=== PATIENT | female | born 1970 | race American Indian/Alaskan Native ===

== ENCOUNTER 2017-10-28 18:00 | Outpatient (CLI) | payer OTHER | END 2017-10-28 18:01 | disposition home or self-care (01) | LOC: LABHHL 18:00 | PROVIDERS: ATTEND Surgery | DX: L98.9 Disorder of the skin and subcutaneous tissue, unspecified (principal) | CPT/HCPCS: 88305; 88342 ==

== ENCOUNTER 2017-11-14 07:12 | Day surgery (SDC) | payer OTHER ==
[~2017-11-14 07:12] MED LIST: MARCAINE 0.25% INFILTRATI ONE; NACL 0.9% IR ONE; XYLOCAINE 1% 20 mL INFILTRATI ONE
[2017-11-14] MEDS ORDERED: NACL BACTERIOSTATIC INFILTRATI ONE (08:19)
[2017-11-14] MEDS ORDERED: XYLOCAINE 1% 20 mL ONE (08:42)
[2017-11-14] MEDS ORDERED: MARCAINE 0.25% INFILTRATI ONE ×2 (08:43→09:00)
[2017-11-14] MEDS ORDERED: VERSED IV NR (08:51)
[2017-11-14] MEDS ORDERED: DILAUDID ONE ×2 (08:52→08:55)
[2017-11-14] MEDS ORDERED: DIPRIVAN 10 MG/ML IV ONE ×4 (08:53→10:03)
[2017-11-14] MEDS ORDERED: XYLOCAINE MPF 2% ONE (08:55)
--- NOTE | 2017-11-14 08:59 | Anesthesia Consultation ---
Anesthesia Consult and Med Hx Date of service: 11/14/17 - Airway Anesthetic Teeth Evaluation: Good ROM Head & Neck: Adequate Mental/Hyoid Distance: Adequate Mallampati Class: Class II Intubation Access Assessment: Good - Pulmonary Exam CTA: Yes - Cardiac Exam Cardiac Exam: No Murmur - Pre-Operative Health Status ASA Pre-Surgery Classification: ASA2 - Pulmonary Hx Smoking: Yes (SINCE 2006, QUIT 10/2017) - Central Nervous System Hx Psychiatric Problems: No - Other Systems Hx Alcohol Use: No Hx Substance Use: No Hx Cancer: Yes
[2017-11-14] MEDS ORDERED: ANCEF/STERILE WATER 2 GM/20 ML IV NR (09:00)
[2017-11-14] MEDS ORDERED: NACL 0.9% 1000 ML 1,000 ML IV SCH (09:00)
[2017-11-14] MEDS ORDERED: XYLOCAINE 1% 20 mL INFILTRATI ONE (09:00)
[2017-11-14] MEDS ORDERED: PEPCID IV NR (09:00)
[2017-11-14] MEDS ORDERED: NACL 0.9% IR ONE (09:00)
[2017-11-14] MEDS ORDERED: HEPARIN IV ONE (09:00)
[2017-11-14] MEDS ORDERED: HEPARIN IR ONE (09:00)
--- NOTE | 2017-11-14 09:00 | Anesthesia Day of Surgery ---
Anesthesia Day of Surgery - Day of Surgery Patient Examined: Yes Patient H&P Reviewed: Yes Patient is NPO: Yes
[2017-11-14] MEDS ORDERED: HEPARIN 10,000 UNITS/10 ML ONE (09:29)
[2017-11-14] MEDS ORDERED: NACL 0.9% 100 ML ONE (09:42)
--- NOTE | 2017-11-14 10:53 | Short Stay Summary ---
Short Stay Documentation Date of service: 11/14/17 Narrative H&P: 47 yo F with diagnosis of right breast cancer, managed by Dr. Fields. Patient presents for port placement for initiation of chemotherapy next week. She has no complaints. All risks of port placment discussed and all questions answered. The consent was signed. - History H&P: obtained from office - Allergies and Medications Current Medications: Allergies No Known Allergies Allergy (Verified 11/10/17 14:48) Home Medications Medication Instructions Recorded Confirmed Last Taken Type HYDROcodone/APAP 7.5-325 [[place] 1 tab PO Q6H 11/10/17 11/14/17 11/13/17 History 7.5-325 mg TAB] Active Medications Cefazolin Sodium (Ancef/Sterile Water 2 Gm/20 Ml) 2 gm IV PREOP NR Stop: 11/14/17 11:00 Famotidine (Pepcid) 20 mg IV PREOP NR Stop: 11/14/17 11:00 Last Admin: 11/14/17 08:58 Dose: 20 mg Sodium Chloride (Nacl 0.9% 1000 Ml) 1,000 mls @ 100 mls/hr IV DIRECT PRITESH Last Admin: 11/14/17 08:57 Dose: 100 mls/hr Midazolam HCl (Versed) 2 mg IV ONCE NR Stop: 11/14/17 11:00 - Brief post op/procedure progress note Date of procedure: 11/14/17 Pre-op diagnosis: right breast cancer Post-op diagnosis: same Procedure: Left IJ Port a cath placement Anesthesia: MAC, local Findings: good placement of port on post op CXR, no PTX Surgeon: ELVIS ZELAYA Estimated blood loss: minimal Pathology: none Condition: stable - Hospital course Hospital course: Patient was recovered in the recovery room. She was discharged to home once criteria was met. - Disposition Condition at discharge: Good Disposition: DC-01 TO HOME OR SELFCARE - Discharge Diagnoses (1) Breast cancer, right Status: Acute Short Stay Discharge Plan Activity: no restrictions Diet: regular Wound: open to air, other (may shower tomorrow, no baths/hottubs/pools until incisions are healed. Pat dry, do not scrub.) Additional Instructions: call surgeons office if you have fevers>100.4, drainage or redness around incision. Follow up with: JOHNNY ELIZABETH MD [Primary Care Provider] - 7 Days JUAN CARLOS FIELDS MD [Staff Physician] - 7 Days ELVIS ZELAYA DO [Staff Physician] - 14 Days (Follow up with Dr. Zelaya if you will not be seeing Dr. Fields in the next two weeks)
--- NOTE | 2017-11-14 11:06 | Operative Report ---
Operative Report Operative Report: Date of operation: 11/14/17 Preoperative diagnosis: Right breast cancer Postoperative diagnosis: Same as above Procedure performed: Placement of left internal jugular Port-A-Cath Surgeon:Lizett valadez DO Anesthesia: Mac, local Findings: Postoperative chest x-ray showed good placement of Port-A-Cath, no pneumothorax EBL: 10 mL Complications: None Disposition: Stable to PACU HPI and Indication: 47-year-old female recently diagnosed right-sided breast cancer. The patient is seen by Dr. Fields (breast surgeon) and was referred to a oncologist. She is a candidate for chemotherapy and therefore presents for port placement. All labs reviewed. I discussed all of the risks associated with port placement with the patient, including but not limited to, bleeding, infection, malpositioning of the port, pneumothorax, hemothorax, injury to other structures. All questions were answered and consent was signed. Procedure in detail: Patient was identified in the preoperative area and taken back to the operating room and placed on the operating room table in supine position. After anesthesia was induced the arms were tucked and a bump was placed under her shoulder. The upper chest and neck was prepped and draped in usual sterile fashion and timeout was performed. The patient was placed in Trendelenburg position. The skin at the intended puncture site was anesthetized with a mixture of 0.25% Marcaine and 1% lidocaine. Using the patient's clavicle as a landmark and ultrasound guidance, I attempted to access the left subclavian vein. Secondary to the patient's respiratory variation, the subclavian vein was seen to collapse with every breath. Therefore after 2 unsuccessful attempts at access, I decided to access the internal jugular vein. Using ultrasound guidance the internal jugular vein was identified and seen to be collapsible. The skin was anesthetized and the internal jugular vein was accessed on the first stick. There was return of dark, nonpulsatile blood. The wire was then threaded without difficulty using fluoroscopic guidance. The needle was removed and the wire fixed to the drapes using a hemostat. Local anesthetic was then infiltrated in the skin at the port insertion site. Using a 15 blade a incision was made in the skin below the clavicle and dissection was carried down through skin and subcutaneous tissue using Bovie electrocautery with hemostasis achieved along the way. The pocket was then created using electrocautery as well as blunt dissection. The catheter was then tunneled from the pocket to the wire. The breakaway sheath-dilator complex was then placed over the wire under fluoroscopy. The wire and dilator were removed and the catheter placed in the breakaway sheath, which was then peeled away slowly. The catheter was then pulled back under fluoroscopic guidance until the tip was seen to lay in the right atrium. The catheter was then cut to size and the port connected. It was sutured into the pocket until locations using 2-0 Vicryl interrupted sutures. The wound was then irrigated and hemostasis ensured. The deep dermal layer was closed with 3-0 Vicryl interrupted sutures. The skin incisions were closed with 4-0 Monocryl subcuticular stitches and skin glue. PostOperative chest X-ray was obtained and showed the port and good positioning , no kinks and the catheter, and no pneumothorax. At the end of the case, all sponge, instrument, sharp counts were correct 2. The patient was awoken from anesthesia and taken to PACU in stable condition.
--- NOTE | 2017-11-14 11:16 | Fluoroscopy Report ---
PORTABLE CHEST INDICATION: Right breast cancer. COMPARISON: None similar. FINDINGS: Portable, frontal chest radiograph demonstrates left chest port tip at the cavoatrial junction. Normal cardiomediastinal silhouette. No pleural effusions or CHF. Mild bony degenerative changes. CONCLUSION: Uncomplicated left chest port placement, as described. Thank you for the opportunity to participate in this patient's care.
[2017-11-14 12:03] VITALS: BP 145/97
== END 2017-11-14 12:35 | disposition home or self-care (01) ==
LOC: OR 07:12
PROVIDERS: ATTEND Surgery
DX: C50.411 Malignant neoplasm of upper-outer quadrant of right female breast (principal); E66.9 Obesity, unspecified; Z68.33 Body mass index [BMI] 33.0-33.9, adult; Z98.890 Other specified postprocedural states; Z87.891 Personal history of nicotine dependence
CPT/HCPCS: 36561; 77001; C1788; J1170; J1644; J2250; J2704; J7030

== ENCOUNTER 2017-11-29 13:14 | Outpatient (CLI) | payer OTHER ==
--- NOTE | 2017-12-02 11:07 | Magnetic Resonance Report ---
BILATERAL BREAST MRI WITHOUT AND WITH CONTRAST: 11/29/17 13:14:00 CLINICAL: Recently diagnosed stage [id number] right breast cancer. Right breast ultrasound core biopsy of a mass at 10 o'clock 6 cm from the nipple and ultrasound-guided biopsy of a right axillary lymph node on 10/19/17. COMPARISON:08/31/17 bilateral mammogram and bilateral breast ultrasound. TECHNIQUE: Axial 1.0-mm T1 without, axial high resolution 2.0-mm T2 and axial 1.0-mm dynamic Vibrant high-resolution postcontrast T1 fat saturation sequences on a 1.5 Mable magnet. The examination was performed with an 8 channel dedicated [place] breast coil. Post processing with CAD and subtraction was performed on an [email or web address] workstation. 20 cc of Multihance was injected via a left 22-gauge left hand INT for the contrast portion of the exam. The patient vomited with the contrast injection. Consent was obtained prior to the administration of the contrast. FINDINGS: Motion and time delay related to the episode of vomiting compromise the quality of the exam. Right: Marked background parenchyma enhancement with diffuse enhancement of the breast and skin. Marked skin thickening (14 mm maximum) of the right breast along with bands of enhancing tissue extending from the nipple toward the known cancer in the upper-outer quadrant approximately 9 cm from the nipple. These bands of enhancing tissue also demonstrate T2 hyperintensity consistent with edema. The known cancer is a mass that measures 16.0 x 16.0 x 9.0 mm. It demonstrates heterogeneous enhancement with mixed kinetics, 394% peak enhancement and 32% type III washout. No other mass is identified in the breast. No enlarged axillary or internal mammary and lymph nodes and no distinct small lymph nodes are identified in the axilla. Left: Minimal background parenchymal enhancement. No mass or suspicious enhancement of the left breast. No suspicious left axillary or left internal mammary lymph nodes. An [id number] is identified in the upper inner quadrant. IMPRESSION: 1. Known right breast cancer with biopsy proven right axillary javed metastasis. Marked lymphedema of the breast and an enhancement pattern suspicious for extensive multi-centric tumor. 2. Despite biopsy-proven right axillary javed metastasis, no enlarged or otherwise suspicious lymph nodes are identified. 3. Negative left breast. RIGHT BI-RADS 6 -- Known Cancer LEFT BI-RADS 1 -- Negative
== END 2017-11-29 13:15 | disposition home or self-care (01) ==
LOC: SPVIMAG 13:14
PROVIDERS: ATTEND Surgery
DX: C79.89 Secondary malignant neoplasm of other specified sites (principal); C50.411 Malignant neoplasm of upper-outer quadrant of right female breast; C50.811 Malignant neoplasm of overlapping sites of right female breast; I89.0 Lymphedema, not elsewhere classified
CPT/HCPCS: A9577; C8908; 77059

== ENCOUNTER 2018-02-06 00:46 | Emergency (ER) | payer OTHER ==
[2018-02-06 01:15] VITALS: BP 153/100
--- NOTE | 2018-02-06 01:38 | XRay Report ---
FINAL REPORT EXAM: XR SPINE CERVICAL 2-3V HISTORY: neck pain TECHNIQUE: Three views of the cervical spine were obtained. FINDINGS: The disc heights and alignment are well maintained. There endplate spurring at C4, C5, C6 and C7. The prevertebral soft tissues and C1-C2 articulation appear intact. IMPRESSION: Endplate spurring in the mid lower cervical spine. Otherwise unremarkable exam.
[2018-02-06] MEDS ORDERED: MOTRIN ONE (01:45)
[2018-02-06] MEDS ORDERED: MOTRIN PO ONE (01:49)
[2018-02-06] MEDS ORDERED: TORADOL ONE (03:42)
[2018-02-06] MEDS ORDERED: TORADOL IM ONE (03:43)
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
== END 2018-02-06 03:55 | disposition home or self-care (01) ==
LOC: ED 00:46
DX: S13.4XXA Sprain of ligaments of cervical spine, initial encounter (principal); M54.5 Low back pain; M19.90 Unspecified osteoarthritis, unspecified site; Z90.49 Acquired absence of other specified parts of digestive tract; Z90.710 Acquired absence of both cervix and uterus; Z85.3 Personal history of malignant neoplasm of breast; V89.2XXA Person injured in unspecified motor-vehicle accident, traffic, initial encounter; Y93.89 Activity, other specified; Y99.8 Other external cause status; Y92.410 Unspecified street and highway as the place of occurrence of the external cause
CPT/HCPCS: 72040; 96372; 99283; J1885

== ENCOUNTER 2018-03-16 11:00 | Outpatient (CLI) | payer OTHER ==
--- NOTE | 2018-03-20 09:40 | PET Report ---
PET SB TO MT SUBSEQUENT: HISTORY: Right breast cancer. TECHNIQUE: 15.0 millicuries F-18 FDG was administered intravenously. Noncontrast CT images and PET images were obtained from the skull base to the proximal thighs. Fused images were reviewed on a workstation. The patient's blood glucose level measured 127. COMPARISON: No relevant comparisons at this facility. FINDINGS: BRAIN: physiologic FDG uptake in the imaged brain. NECK: physiologic FDG uptake. CHEST WALL: There is mild diffuse skin thickening and stromal prominence in the right breast with Max SUV measuring 2.7. There is suggestion of a 1.3 cm nodular density in the lateral right breast containing a biopsy clip with Max SUV measuring 1.0. Surgical clips in the right axilla are also noted suggesting right axillary lymph node dissection. MEDIASTINUM: physiologic FDG uptake. LUNGS: physiologic FDG uptake. There are small areas of focal peribronchial nodularity in the lateral right upper lobe and lingula which appear inflammatory in nature. No suspicious pulmonary nodule or mass is appreciated. PLEURA/PERICARDIUM: physiologic FDG uptake. THORACIC LYMPH NODES: physiologic FDG uptake. HEPATOBILIARY: physiologic FDG uptake. Mean liver SUV measures 4.1. Cholecystectomy is noted. PANCREAS: physiologic FDG uptake. SPLEEN: physiologic FDG uptake. ADRENAL GLANDS: physiologic FDG uptake. KIDNEYS/RENAL COLLECTING SYSTEMS: physiologic FDG uptake. BOWEL/MESENTERY: physiologic FDG uptake. PELVIC VISCERA: physiologic FDG uptake. Hysterectomy changes are noted. ABDOMINAL/PELVIC LYMPH NODES: physiologic FDG uptake. There is a solitary mildly enlarged left groin lymph node measuring 1.8 x 1.6 cm on image 2-9. Max SUV measures 3.1. MUSCULOSKELETAL: physiologic FDG uptake. IMPRESSION: There is mild diffuse skin thickening throughout the right breast with mildly elevated metabolic activity as described above. This could be secondary to dermal involvement from known right breast cancer. Post therapy changes could be considered. No discrete hypermetabolic right breast mass is identified. No hypermetabolic axillary lymph nodes. No evidence for hepatic, pulmonary or osseous metastasis. There is a solitary mildly hypermetabolic lymph node in the left groin which is probably reactive in nature.
== END 2018-03-16 11:01 | disposition home or self-care (01) ==
LOC: PET 11:00
PROVIDERS: ATTEND Surgery
DX: C50.411 Malignant neoplasm of upper-outer quadrant of right female breast (principal); C50.811 Malignant neoplasm of overlapping sites of right female breast; R59.1 Generalized enlarged lymph nodes; Z90.49 Acquired absence of other specified parts of digestive tract; Z90.710 Acquired absence of both cervix and uterus; Z79.899 Other long term (current) drug therapy
CPT/HCPCS: 78815; 82962; A9552

== ENCOUNTER 2018-03-28 10:17 | Outpatient (CLI) | payer OTHER ==
--- NOTE | 2018-03-28 13:26 | Ultrasound Report ---
ULTRASOUND LEFT GROIN: 03/28/18 CLINICAL: Right breast cancer status post chemotherapy and a suspicious left inguinal lymph node on PET. FINDINGS: Ultrasound left groin demonstrated several lymph nodes with benign morphology and central fat. No suspicious lymph nodes. The largest lymph node identified measures 1.0 x 0.4 cm. IMPRESSION: Benign-appearing left inguinal lymph nodes and no suspicious lymph node.
--- NOTE | 2018-03-29 11:38 | Mammography Report ---
RIGHT DIGITAL DIAGNOSTIC MAMMOGRAM with CAD: 03/28/18 10:17:00 CLINICAL: Known right breast cancer status post neoadjuvant chemotherapy. COMPARISON:10/19/17 FINDINGS: The breast is heterogeneously dense with slightly increased density compared to the prior exam. Increased diffuse skin thickening of the breast. No distinct mass and no architectural distortion or suspicious calcifications. Upper outer biopsy clip. IMPRESSION: Increased skin thickening and increased density of the breast.Although these changes may be due to increased lymphedema in the breast, tumor progression cannot be excluded. BI-RADS CATEGORY: 6--Known Cancer ACR BI-RADS MAMMOGRAPHIC CODES: 0 = Needs additional imaging evaluation; 1 = Negative; 2 = Benign; 3 = Probably benign; 4 = Suspicious; 5 = Malignant; 6 = Known biopsy-proven malignancy COMMENT: 1. Dense breast tissue, i.e., adenosis, fibrocystic changes, etc., may obscure an underlying neoplasm. 2. Approximately 10% of cancers are not detected with mammography. 3. A negative mammography report should not delay biopsy if a clinically suspicious mass is present. COMMENT: Patient follow-up letters are generated by our [employer] application.
== END 2018-03-28 10:18 | disposition home or self-care (01) ==
LOC: SPVWC 10:17
PROVIDERS: ATTEND Surgery
DX: C50.411 Malignant neoplasm of upper-outer quadrant of right female breast (principal); Z87.891 Personal history of nicotine dependence

== ENCOUNTER 2018-04-12 11:53 | Observation (INO) | payer OTHER ==
[~2018-04-12 11:53] MED LIST changes: +DILAUDID IV PRN; +LACTATED RINGERS 1,000 ML IV SCH; -MARCAINE 0.25% INFILTRATI ONE; -NACL 0.9% IR ONE; +VERSED IV NR; -XYLOCAINE 1% 20 mL INFILTRATI ONE; +ZOFRAN IV PRN
[2018-04-12] MEDS ORDERED: ANCEF/STERILE WATER 2 GM/20 ML IV NR (13:00)
[2018-04-12] MEDS ORDERED: MARCAINE 0.5% 30 ML INFILTRATI ONE (13:07)
[2018-04-12] MEDS ORDERED: SUBLIMAZE ONE ×2 (13:07→15:03)
[2018-04-12] MEDS ORDERED: DECADRON ONE (13:07)
[2018-04-12] MEDS ORDERED: XYLOCAINE 1% 20 mL ONE (13:08)
[2018-04-12 13:19] LABS: Basophils % (Auto) 0.5 % (0.0-1.8); Eosinophils % (Auto) 0.7 % (0.0-4.3); Hematocrit 33.9 % (30.3-42.9); Hemoglobin 10.9 gm/dl (10.1-14.3); Lymphocytes # (Auto) 1.9 K/mm3 (1.2-5.4); Mean Corpuscular HGB Conc 32 % (30-34); Mean Corpuscular Hemoglobin 33 pg (28-32); Mean Corpuscular Volume 101 fl (79-97); Monocytes # (Auto) 0.3 K/mm3 (0.0-0.8); Monocytes % (Auto) 6.8 % (0.0-7.3); Platelet Count 123 K/mm3 (140-440); Red Blood Count 3.36 M/mm3 (3.65-5.03)
[2018-04-12 13:20] LABS: Red Cell Distribution Width 22.7 % (13.2-15.2)
[2018-04-12] MEDS ORDERED: NACL 0.9% IR ONE (14:24)
[2018-04-12] MEDS ORDERED: DIPRIVAN 10 MG/ML IV ONE (14:32)
[2018-04-12] MEDS ORDERED: DILAUDID ONE (14:48)
[2018-04-12] MEDS ORDERED: XYLOCAINE MPF 2% ONE (14:48)
[2018-04-12] MEDS ORDERED: NEO SYNEPHRINE/NS Syringe(OR USE) IV ONE (16:00)
[2018-04-12] MEDS ORDERED: NACL 0.9% 1000 ML 1,000 ML ONE (16:30)
[2018-04-12] MEDS ORDERED: ZOFRAN ONE (17:51)
--- NOTE | 2018-04-12 18:21 | Short Stay Summary ---
Short Stay Documentation Date of service: 04/12/18 - History H&P: obtained from office - Allergies and Medications Current Medications: Allergies No Known Allergies Allergy (Verified 04/10/18 15:15) Home Medications Medication Instructions Recorded Confirmed Last Taken Type HYDROcodone/APAP 7.5-325 [[place] 1 tab PO Q6H 11/10/17 04/10/18 11/13/17 History 7.5-325 mg TAB] Baclofen [Lioresal] 10 mg PO TID #12 tab 02/06/18 04/10/18 Unknown Rx Ibuprofen [Motrin 800 MG tab] 800 mg PO Q8HR PRN #15 tablet 02/06/18 04/10/18 Unknown Rx Cyclobenzaprine [Flexeril] 10 mg PO Q8HR PRN #20 tablet 04/12/18 Unknown Rx HYDROcodone/APAP 5-325 [[place] 1 each PO Q6HR PRN #30 tablet 04/12/18 Unknown Rx 5/325] Active Medications Cefazolin Sodium (Ancef/Sterile Water 2 Gm/20 Ml) 2 gm IV PREOP NR Stop: 04/12/18 23:59 Lactated Ringer's (Lactated Ringers) 1,000 mls @ 100 mls/hr IV DIRECT PRITESH Last Admin: 04/12/18 13:00 Dose: 100 mls/hr Midazolam HCl (Versed) 2 mg IV PREOP NR Stop: 04/12/18 23:59 Last Admin: 04/12/18 13:08 Dose: 2 mg - Brief post op/procedure progress note Date of procedure: 04/12/18 Pre-op diagnosis: Right breast cancer Post-op diagnosis: same Procedure: R MRM Anesthesia: GETA Findings: known right breast cancer with skin thickening and edematous tissues Surgeon: JUAN CARLOS BRISENO Traffic Court Magistrate: ANTHONY BONILLA Estimated blood loss: 50-100ml Pathology: list (R MRM) Specimen disposition: to lab Condition: stable - Disposition Condition at discharge: Good Disposition: DC/TX-02 SHRT-TRM GEN HOSP IP Short Stay Discharge Plan Activity: other (no heavy lifting) Diet: regular Wound: other (may shower in 48 hours; no baths, pools or lakes; do not rub or scrub incision; wear breast binder) Follow up with: POLINA ANSSAR MD [Primary Care Provider] - 7 Days JUAN CARLOS BRISENO MD [Staff Physician] - 7 Days Prescriptions: Cyclobenzaprine [Flexeril] 10 mg PO Q8HR PRN #20 tablet PRN Reason: Spasms HYDROcodone/APAP 5-325 [[place] 5/325] 1 each PO Q6HR PRN #30 tablet PRN Reason: Pain
--- NOTE | 2018-04-12 18:28 | Operative Report ---
Operative Report Operative Report: Date of Service: April 12, 2018 Preoperative diagnosis: Right breast cancer of the upper outer quadrant and overlapping areas Postoperative diagnosis: Same Procedure: Right modified radical mastectomy Surgeon: Arlene Fields M.D. Asst.: CURTIS Vieira Anesthesia: Gen. Findings: Known right breast cancer with diffuse palpable asymmetry, thickened skin and edematous tissues Complications: None Drains: 2 19 Fr Estimated blood loss: 50-100 cc Disposition: PACU in good condition Indications for operative procedure: This is a 47-year-old lady with advanced Stage III right breast cancer of the upper outer quadrant with overlapping areas; IDCA [id number] Her-2 positive. Recommendations were to proceed with a right modified radical mastectomy and delayted plastic reconstructive surgery. Patient recently completed neoadjuvant chemotherapy of TCH/P. She understood if skin margins were positive would need to return for another surgery with wide local excision of skin and flap advancement. She wished to proceed with the above procedure. Procedure in detail: Anesthesia placed right pectoral muscle block prior to going to the operating room. The patient was taken to the operating room and was placed supine. Gen. anesthesia was administered. Right breast and axilla were prepped and draped in the normal sterile operative fashion. Timeout was performed. Typical mastectomy incision markings were made to encompass the majority of skin to allow appropriate skin closure. Attention was taken towards the right breast. A skin incision was made with a 10 blade knife and dissection taken down to the subcutaneous tissues. First began raising of the superior flap to the level of the clavicle superiorly and posteriorly to the pectoralis muscle. Followed by raising of the medial flap to the level of the sternum and posteriorly to the pectoralis muscle. Followed by raising of the lateral flap to the level of the latissimus dorsi muscle and taken down posteriorly. Followed by raising of the inferior flap to the level of the inframammary fold taken posterior to the pectoralis muscle. The mastectomy/breast was removed from the pectoralis muscle without incident. The breast tissues and skin were noted for skin thickening and edema. The posterior aspect of the mastectomy with edematous and somewhat adherent to the muscle but dissected free. The remaining skin with normal appearance. The specimen was appropriately marked and sent to pathology. Attention was then taken towards the right axilla. A larger right axillary hematoma was noted and most probable from pectoral block that was placed, no active bleeding was present. The lattismus dorsi muscle was identified and followed superiorly. The axillary fascia was opened. Then proceeded with identification of the axillary vein followed by identification of the thoracodorsal bundle and long thoracic nerve. Axillary lymph nodes were then removed from the above boundaries with the aid of the bovie cautery and sweeping -like motion and then sent to pathology. The axilla was noted for edema and some reactive tissue. Both nerves were identified and unharmed. Hemostasis was noted. Two 19 [place] YVETTE drains were placed. The subcutaneous tissues were approximated and closed using interrupted 3-0 Vicryl. The skin was then closed using a running 4-0 Monocryl followed by skin affix. She was awaken from anesthesia without any complications and transported to PACU in good condition.
[2018-04-12] MEDS ORDERED: TYLENOL PO PRN (18:32)
[2018-04-12] MEDS ORDERED: BENADRYL PO PRN (18:32)
[2018-04-12] MEDS ORDERED: ZOFRAN IV PRN (18:32)
[2018-04-12] MEDS ORDERED: SODIUM CHLORIDE FLUSH SYRINGE 10 ML IV PRN (18:32)
[2018-04-12] MEDS ORDERED: REGLAN PO PRN (18:32)
[2018-04-12] MEDS ORDERED: MORPHINE IV PRN (18:34)
[2018-04-12] MEDS ORDERED: LACTATED RINGERS 1,000 ML IV SCH (19:00)
[2018-04-12] MEDS ORDERED: MYLICON PO PRN (22:21)
[2018-04-12] MEDS: COLACE PO SCH (22:32)
[2018-04-13] MEDS: PERCOCET 5/325 PO PRN ×2 (05:14→11:08)
[2018-04-13] MEDS: COLACE PO SCH (11:09)
[2018-04-13 15:13] VITALS: BP 127/84
== END 2018-04-13 13:30 | disposition home or self-care (01) ==
LOC: OR 11:53 → INTOOBSV 18:32 → OB 18:32
PROVIDERS: ADMIT Surgery; ATTEND Surgery
DX: C50.911 Malignant neoplasm of unspecified site of right female breast (principal)
CPT/HCPCS: 19307; 36415; 64450; 85025; 88307; 88309; 96374; G0378; J0690; J1100; J1170; J2250; J2270; J2370; J2405; J2704; J3010; J7030; J7120

== ENCOUNTER 2018-08-15 09:06 | Outpatient (CLI) | payer OTHER ==
--- NOTE | 2018-08-15 09:58 | Mammography Report ---
LEFT DIGITAL DIAGNOSTIC MAMMOGRAM with CAD: 08/15/18 09:06:00 CLINICAL: Right breast cancer status post right partial mastectomy, radiation therapy and chemotherapy. COMPARISON:08/31/17 mammogram and 11/29/17 breast MRI FINDINGS: The breast is mostly fatty.No mass, architectural distortion or suspicious calcifications. IMPRESSION: No mammographic evidence of malignancy. BI-RADS CATEGORY: 1 - - Negative RECOMMENDATION: Routine mammographic screening in one year. ACR BI-RADS MAMMOGRAPHIC CODES: 0 = Needs additional imaging evaluation; 1 = Negative; 2 = Benign; 3 = Probably benign; 4 = Suspicious; 5 = Malignant; 6 = Known biopsy-proven malignancy COMMENT: 1. Dense breast tissue, i.e., adenosis, fibrocystic changes, etc., may obscure an underlying neoplasm. 2. Approximately 10% of cancers are not detected with mammography. 3. A negative mammography report should not delay biopsy if a clinically suspicious mass is present. COMMENT: Patient follow-up letters are generated by our [employer] application.
== END 2018-08-15 09:07 | disposition home or self-care (01) ==
LOC: SPVWC 09:06
PROVIDERS: ATTEND Surgery
DX: C50.411 Malignant neoplasm of upper-outer quadrant of right female breast (principal); M19.90 Unspecified osteoarthritis, unspecified site; Z90.49 Acquired absence of other specified parts of digestive tract; Z90.710 Acquired absence of both cervix and uterus; Z87.891 Personal history of nicotine dependence